=== PATIENT | male | born 1965 | race Caucasian/White ===

== ENCOUNTER 2019-08-16 15:01 | Emergency (ER) | payer BC, OTHER ==
[~2019-08-16] VITALS: Ht 175.3 cm; Wt 90.7 kg
[2019-08-16 15:15] VITALS: BP 169/99
[2019-08-16] MEDS ORDERED: VALACYCLOVIR1000 MG PO (15:38)
== END 2019-08-16 15:49 | disposition home or self-care (01) ==
LOC: ER 15:01
DX: B02.9 Zoster without complications (principal)